=== PATIENT | female | born 2000 | race Native Hawaiian/Other Pacific Islander ===

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

== ENCOUNTER 2019-04-21 12:27 | Emergency (ER) | payer OTHER, BC ==
[~2019-04-21] VITALS: Ht 162.6 cm; Wt 77.1 kg
[2019-04-21 13:24] VITALS: BP 132/69; TEMP 97.9
== END 2019-04-21 13:26 | disposition home or self-care (01) ==
LOC: ED 12:27
DX: S56.912A Strain of unspecified muscles, fascia and tendons at forearm level, left arm, initial encounter (principal); S96.911A Strain of unspecified muscle and tendon at ankle and foot level, right foot, initial encounter; V43.52XA Car driver injured in collision with other type car in traffic accident, initial encounter; Y92.410 Unspecified street and highway as the place of occurrence of the external cause
CPT/HCPCS: 99282